=== PATIENT | male | born 1995 | race Two or more races ===

== ENCOUNTER 2017-06-26 17:09 | Emergency (ER) | payer BC, OTHER ==
[~2017-06-26] VITALS: Ht 167.6 cm; Wt 58.3 kg
[2017-06-26] MEDS ORDERED: LIDOCAINE 1%, 20ML ONE (18:30)
[2017-06-26] MEDS ORDERED: LIDOCAINE 1%, 20ML SQ ONE (18:30)
[2017-06-26] MEDS ORDERED: DIPH,PERTUSS(ACELL),TET VAC/PF 0.5 ML IM-VACC ONE ×2 (18:30)
[2017-06-26] MEDS ORDERED: BACITRACIN ZINC OINT 500U/GM, 0.9 GM ONE (19:33)
[2017-06-26 19:42] VITALS: BP 139/81
== END 2017-06-26 19:44 | disposition home or self-care (01) ==
LOC: ED 18:23
DX: S51.811A Laceration without foreign body of right forearm, initial encounter (principal); W10.9XXA Fall (on) (from) unspecified stairs and steps, initial encounter; Y93.89 Activity, other specified; Y92.89 Other specified places as the place of occurrence of the external cause; Y99.8 Other external cause status
CPT/HCPCS: 12002; 90471; 90715

== ENCOUNTER 2020-01-22 08:16 | Emergency (ER) | payer SELFPAY ==
[~2020-01-22] VITALS: Ht 167.6 cm; Wt 66.8 kg
[2020-01-22 08:39] VITALS: BP 138/95
== END 2020-01-22 10:45 | disposition home or self-care (01) ==
LOC: ED 09:11
DX: R06.00 Dyspnea, unspecified (principal)
CPT/HCPCS: 71045; 93005; 99283